=== PATIENT | female | born 1930 | race Caucasian/White ===

== ENCOUNTER 2018-08-04 08:45 | Day surgery (SDC) | payer OTHER ==
[2018-08-04 09:29] VITALS: BMI 32.5
--- NOTE | 2018-08-04 14:43 | RAD REPORT ---
EXAM DESCRIPTION: RAD - Myelography Lumbar - 08/04/2018 11:20 am CLINICAL HISTORY: ^[id number] Patient gives a history of back pain and bilateral lower extremity radiculopathy. COMPARISON: None. TECHNIQUE: The patient presents for lumbar myelogram and post-myelogram CT imaging. The patient had no contraindicated allergy or medication history. The patient was off anticoagulation therapy for 6-7 days. PT/ PTT/ INR studies are within normal limits. The lumbar myelogram procedure, risks and alternatives were discussed with the patient in detail. Aft er answering all questions, both oral and written consent were obtained. Preliminary images were obtained. Access site was selected. The patient was placed in a prone oblique position on the fluoroscopic table. Skin was prepped and draped in the usual sterile fashion. Skin a nd deeper tissues were anesthetized with 1% lidocaine. Under fluoroscopic guidance a 22 gauge spinal needle was used to access the thecal sac L3 level. Intrathecal placement was confirmed. Approximately 10 mL of Isovue M 200 contrast material was instilled into the thecal sac. Needle was withdrawn and a bandage placed to the puncture site. Post-procedure care and precaution instructions were given to the patient. There were no immediate complications. The patient was transferred to the CT suite for pending cross-sectional imaging and then transferred to same-day surgery for post myelogram monitoring. IMPRESSION: 1. Successful fluoroscopic guided lumbar myelogram procedure was performed. There were n o immediate complications. Post-procedure care and precaution instructions were given to the patient. 2. Myelogram findings are incorporated into the CT lumbar spine report.
[2018-08-04 15:21] VITALS: BP 140/62; TEMP 97.6; O2SAT 98
--- NOTE | 2018-08-04 17:30 | RAD REPORT ---
EXAM DESCRIPTION: CT - Spine Lumbar Wo Con - 08/04/2018 11:09 am CLINICAL HISTORY: Back pain, bilateral lower extremity radiculopathy COMPARISON: Lumbar myelogram images same date TECHNIQUE: Thin section axial 2 millimeter imaging of the lumbar spine was performed. Sagittal and coronal 2 millimeter reconstruction images were generated and reviewed. Angled thin-section [address] reconstruction images were obtained through each lumbar disc level. All CT scans are performed using dose optimization technique as appropriate and may include automated exposure control or mA/KV adjustment according to patient size. FINDINGS: Intrathecal contrast is present. This is part of a separately reported lumbar myelogram pr mert. Tip of the conus terminates at the L1-2 disc level. No clumping or thickening of the cauda equina. No CT findings of arachnoiditis. Lumbar bodies are normal in height and alignment. No compression fracture change. No lytic, sclerotic or expansile bony destructive process. There are no pars defects present. Degenerative gas is presen t in the L3-4 disc space with slight narrowing posteriorly. Significant disc space narrowing is prese nt at L5-S1 with marginal spurring and degenerative gas in the disc space. T12-L1 level: No significant finding. L1-2 level: No significant central canal finding. Minimal disc bulge in the far left lateral aspect o f the exit foramen. No foraminal stenosis. No significant facet or ligamentous degenerative process. L2-3 level: No significant finding. Facet and ligamentous changes are minimal. L3-4 level: Prominent circumferential bulging of disc material is present. There is prominent facet d egenerative change at this level along with ligamentous thickening. There is anterior and posterior t hecal sac compression with an 8 millimeter thecal sac diameter. Right foraminal disc bulge causes jimi nosis. There is prominent ligamentous thickening at the level of the L4 lateral recess. This contribu maco to another site of stenosis to 8 mm. L4-5 level: Circumferential bulging of disc material is present. Prominent facet joint degenerative c hanges are present along with prominent posterior ligamentous thickening. There is anterior and poste rior encroachment on the thecal sac which is reduced to 7 mm in the midline. Bilateral foraminal encr oachment is present from disc bulge. Perineural fat is still present. L5-S1 disc level. Remnant disc bulge and endplate spurring changes do not cause any central spinal st enosis. Facet degenerative change present without ligamentous thickening. Bilateral foraminal encroac hment changes are present. IMPRESSION: L3-4 central spinal stenosis to 8 mm due to disc bulge and prominent posterior ligamento us thickening and facet degenerative change. L4-5 central spinal stenosis to 7 mm due to very pronounced posterior ligamentous thickening, facet d egenerative change and disc bulge. Advanced disc and endplate degenerative change at L5-S1 without central canal encroachment. Bilateral foraminal encroachment changes at this level. Elsewhere foraminal encroachment changes are present but not deemed critical. No acute or destructive bone finding.
== END 2018-08-04 15:15 | disposition home or self-care (01) ==
LOC: DS 08:45
PROVIDERS: ATTEND Specialist
DX: M54.5 Low back pain (principal); M54.16 Radiculopathy, lumbar region; Z88.0 Allergy status to penicillin; Z88.2 Allergy status to sulfonamides
CPT/HCPCS: 62304; 72131